=== PATIENT | female | born 1960 | race American Indian/Alaskan Native ===

== ENCOUNTER 2017-07-10 11:56 | Outpatient (CLI) | payer MEDICARE ==
[2017-07-10 12:36] LABS: Albumin 4.5 g/dL (3.9-5); BUN/Creatinine Ratio 29; Blood Urea Nitrogen 29 mg/dL (7-17); Calcium 9.8 mg/dL (8.4-10.2); Hemolysis Index 31
== END 2017-07-10 11:57 | disposition home or self-care (01) ==
LOC: LAB 11:56
DX: R94.4 Abnormal results of kidney function studies (principal); E11.9 Type 2 diabetes mellitus without complications; I25.10 Atherosclerotic heart disease of native coronary artery without angina pectoris; E78.00 Pure hypercholesterolemia, unspecified; F17.200 Nicotine dependence, unspecified, uncomplicated
CPT/HCPCS: 36415; 80048; 82040; 84100

== ENCOUNTER 2019-02-05 11:37 | Outpatient (CLI) | payer MEDICARE | END 2019-02-05 11:38 | disposition home or self-care (01) | LOC: LAB 11:37 | PROVIDERS: ATTEND Specialist | DX: I63.311 Cerebral infarction due to thrombosis of right middle cerebral artery (principal); I10 Essential (primary) hypertension; E78.5 Hyperlipidemia, unspecified; E13.9 Other specified diabetes mellitus without complications | CPT/HCPCS: 36415; 85652 ==